=== PATIENT | male | born 1960 | race African-American/Black ===

== ENCOUNTER → 2016-06-23 | Emergency (ER) | payer SELFPAY ==
[~2016-06-23] VITALS: Ht 190.5 cm; Wt 111.1 kg
[~2016-06-23] MED LIST: CAFERGOT TABLE1 EACH PO; COMPAZINE10 MG ORAL; NORCO 10-325 T1 EACH ORAL; PHENERGAN25 M1 ORAL; REGLAN10 MG ORAL
[2016-06-23 12:07] VITALS: BP 159/79
[2016-06-23 12:28] VITALS: BP 159/79
--- NOTE | 2016-06-23 14:22 | Emergency Room Report ---
History of Present Illness General Chief Complaint: Headache Present Illness HPI The patient is a 55-year-old male presenting for a migraine headache which began 3 days prior. The patient states that he has a history of migraine headaches and this feels the same. The patient has tried Motrin, Tylenol, Hinckley , and Reglan at home which all have not helped. The patient states that he usually presents to the ER when these medications do not help and receives a shot of Dilaudid. The pain is described as a 10 out of 10 dull ache and is felt diffusely. Pt denies N, V, F, neck pain/stiffness, dizziness, blurred vision, aloc, fatigue, photophobia Allergies: Coded Allergies: KETOROLAC (Verified Allergy, Unknown, 04/27/16) RIZATRIPTAN (Verified Allergy, Unknown, 04/27/16) Patient History Past Medical History: see triage record Pertinent Family History: none Reviewed Nursing Documentation: PMH: Agreed, PSxH: Agreed Review of Systems All Other Systems: negative except mentioned in HPI Physical Exam Vital Signs Date Time Temp Pulse Resp B/P Pulse Ox O2 Delivery O2 Flow Rate FiO2 06/23/16 12:02 98.1 104 20 159/79 97 Room Air Sp02 EP Interpretation: reviewed, normal General Appearance: no apparent distress, alert, GCS 15, non-toxic Head: normocephalic, atraumatic Eyes: bilateral eye PERRL, bilateral eye normal inspection ENT: hearing grossly normal, normal pharynx, no angioedema, normal voice Neck: full range of motion, supple/symm/no masses Respiratory: chest non-tender, lungs clear, normal breath sounds, speaking full sentences Cardiovascular #1: regular rate, rhythm, no edema Musculoskeletal: back normal, gait/station normal, normal range of motion, non- tender Neurologic: alert, oriented x3, responsive, motor strength/tone normal, sensory intact, normal gait, speech normal Psychiatric: judgement/insight normal, memory normal, mood/affect normal, no suicidal/homicidal ideation Skin: normal color, no rash, warm/dry, well hydrated Lymphatic: no adenopathy Medical Decision Making PA Attestation Dr. Ennis is my supervising physician. Patient management was discussed with my supervising physician Diagnostic Impression: Primary Impression: Migraine ER Course The patient is a 55-year-old male presenting for a migraine headache which began 3 days prior. Differential diagnoses include but not limited to Migraine, tension headache, dental infection, pain medication seeking PE: NAD. A&Ox3. CN II-XII intact. HEENT: NC/AT. No lymphadenopathy, no tonsillar edema.erythema. No obvious dental infection. No abscess. Head non tender. The pt was advised he will not be receiving any narcotic pain medication and states he will continue to self-treat at home. Pt declines any other pain medication. Pt will be DC'ed home Last Vital Signs Date Time Temp Pulse Resp B/P Pulse Ox O2 Delivery O2 Flow Rate FiO2 06/23/16 12:28 98.1 104 20 159/79 97 Room Air Status: improved Disposition: HOME, SELF-CARE Condition: Improved Referrals: NOT CHOSEN IPA/,REFERRING (PCP) Patient Instructions: Migraine Headache Additional Instructions: I discussed my findings with the patient. All questions and concerns have been answered. Treatment and medication compliance have been addressed. I advised the patient that they need to follow up with PMD in 3-5 days. Return to ED if symptoms worsen, new symptoms arise, or if needed for any reason. Patient verbalized understanding of discharge instructions. The patient will need to follow up with pain management if pain persists/is not controlled. MANDA DOBSON Jun 23, 2016 14:22
== END | disposition home or self-care (01) ==
LOC: EMR 13:41
DX: G43.909 Migraine, unspecified, not intractable, without status migrainosus (principal); Z88.6 Allergy status to analgesic agent; Z88.8 Allergy status to other drugs, medicaments and biological substances
CPT/HCPCS: 99282